=== PATIENT | female | born 1975 | race Caucasian/White ===

== ENCOUNTER 2021-08-06 20:47 | Inpatient (IN) | payer BC ==
[~2021-08-06] VITALS: Ht 185.4 cm; Wt 217.7 kg
[2021-08-06 21:24] LABS: BASOPHILS # (AUTO) 0.1 (0.0-0.1); BASOPHILS % 0.4 % (0.0-1.0); EOSINOPHILS # (AUTO) 0.2 (0.0-0.4); EOSINOPHILS % 1.4 % (0.0-6.0); HEMATOCRIT 42.1 % (34.2-44.1); HEMOGLOBIN 13.3 g/dL (12.0-16.0); LYMPHOCYTES # (AUTO) 2.2 (1.0-3.2); LYMPHOCYTES % 14.4 % (18.0-39.1); MEAN CORPUSCULAR HEMOGLOBIN 28.2 pg (28-32); MEAN CORPUSCULAR HGB CONC 31.6 g/dL (31-35); MEAN CORPUSCULAR VOLUME 89.4 fL (81-99); MONOCYTES # (AUTO) 0.5 (0.2-0.8); MONOCYTES % 3.2 % (4.4-11.3); NEUTROPHILS % 79.1 % (38.7-80.0); PLATELET COUNT 248 x10e3/uL (140-360); RED BLOOD COUNT 4.71 x10e6/uL (3.6-5.1); RED CELL DISTRIBUTION WIDTH 14.5 % (11.7-14.4)
[2021-08-06 21:30] LABS: INR 1.15; PARTIAL THROMBOPLASTIN TIME 25.3 seconds (23.8-35.5); PROTHROMBIN TIME 15.5 seconds (11.9-14.5)
[2021-08-06 21:36] LABS: ANION GAP 18.4 mmol/L (8-16); CALCIUM 9.4 mg/dL (8.4-10.2); CREATININE, SERUM 1.06 mg/dL (0.57-1.11); POTASSIUM 4.4 mmol/L (3.5-5.1)
[2021-08-06] MEDS ORDERED: WARFARIN SODIUM5 MG PO (22:05)
[2021-08-06] MEDS ORDERED: SODIUM CHLORIDE FLUSH 10 ML SYR INJ PRN (22:15)
[2021-08-06] MEDS ORDERED: ONDANSETRON HCL INJ 2MG/ML 2ML 2 MG/ML VIAL IV PRN (22:15)
[2021-08-06] MEDS ORDERED: HEPARIN SOD (PORCINE) 5,000 UNIT/ML VIAL IV ONE (22:15)
[2021-08-06] MEDS ORDERED: HEPARIN 25,000 UNIT DRIP IV ONE (22:48)
[2021-08-06] MEDS: HEPARIN 25,000 UNIT 1,500 UNIT in DEXTROSE 5% 250ML 250 ML IV SCH (23:03)
[2021-08-07] VITALS (10 sets, daily range): BP systolic 92–110; BP diastolic 57–79
[2021-08-07] MEDS ORDERED: FOLIC ACID0.4 MG PO (01:03)
[2021-08-07] MEDS ORDERED: LISINOPRIL-HCT1 EAC2 PO (01:03)
[2021-08-07] MEDS: HEPARIN 25,000 UNIT 1,500 UNIT in DEXTROSE 5% 250ML 250 ML IV SCH ×2 (04:12→16:15)
[2021-08-07 06:15] LABS: BASOPHILS # (AUTO) 0.1 (0.0-0.1); BASOPHILS % 0.5 % (0.0-1.0); EOSINOPHILS # (AUTO) 0.2 (0.0-0.4); EOSINOPHILS % 0.9 % (0.0-6.0); HEMATOCRIT 43.6 % (34.2-44.1); HEMOGLOBIN 13.7 g/dL (12.0-16.0); LYMPHOCYTES # (AUTO) 3.4 (1.0-3.2); LYMPHOCYTES % 17.5 % (18.0-39.1); MEAN CORPUSCULAR HEMOGLOBIN 27.8 pg (28-32); MEAN CORPUSCULAR HGB CONC 31.4 g/dL (31-35); MEAN CORPUSCULAR VOLUME 88.6 fL (81-99); MONOCYTES # (AUTO) 0.7 (0.2-0.8); MONOCYTES % 3.7 % (4.4-11.3); NEUTROPHILS # (AUTO) 14.7 (2.1-6.9); NEUTROPHILS % 75.6 % (38.7-80.0); PLATELET COUNT 262 x10e3/uL (140-360); RED BLOOD COUNT 4.92 x10e6/uL (3.6-5.1); RED CELL DISTRIBUTION WIDTH 14.7 % (11.7-14.4)
[2021-08-07 06:50] LABS: ALBUMIN 3.3 g/dL (3.5-5.0); ALBUMIN/GLOBULIN RATIO 0.7 (0.8-2.0); ANION GAP 17.4 mmol/L (8-16); CALCIUM 9.3 mg/dL (8.4-10.2); CREATININE, SERUM 1.34 mg/dL (0.57-1.11); POTASSIUM 4.4 mmol/L (3.5-5.1)
[2021-08-07] MEDS ORDERED: HEPARIN 25,000 UNIT DRIP IV ONE (07:33)
[2021-08-07] MEDS: ACETAMINOPHEN/CODEINE 300MG - 30MG TAB PO PRN ×3 (08:15→20:34)
[2021-08-07] MEDS ORDERED: Vancomycin IV 1 GM in SODIUM CHLORIDE 0.9% 250ML 250 ML IV SCH (17:00)
[2021-08-07 17:41] LABS: INR 1.11; PROTHROMBIN TIME 15.1 seconds (11.9-14.5)
[2021-08-07] MEDS: WARFARIN SOD 2 MG TAB PO SCH (17:46)
[2021-08-07] MEDS: Vancomycin IV 1 GM in SODIUM CHLORIDE 0.9% 250ML 250 ML IV SCH (20:00)
[2021-08-07] MEDS ORDERED: CEFTRIAXONE 1 GM in SODIUM CHLORIDE 0.9% 50ML 50 ML IV SCH (21:00)
[2021-08-08] VITALS (8 sets, daily range): BP systolic 77–115; BP diastolic 53–71
[2021-08-08] MEDS: ACETAMINOPHEN/CODEINE 300MG - 30MG TAB PO PRN ×3 (01:47→17:43)
[2021-08-08] MEDS: Vancomycin IV 1 GM in SODIUM CHLORIDE 0.9% 250ML 250 ML IV SCH ×2 (10:40→20:31)
[2021-08-08] MEDS: WARFARIN SOD 2 MG TAB PO SCH (17:00)
[2021-08-08 18:21] LABS: CLARITY,URINE CLEAR (CLEAR); COLOR,URINE YELLOW (YELLOW); KETONES,URINE NEGATIVE (NEGATIVE); LEUKOCYTE ESTERASE ,URINE NEGATIVE (NEGATIVE); NITRITE,URINE NEGATIVE (NEGATIVE); PROTEIN,URINE DIPSTICK NEGATIVE (NEGATIVE); URINE UROBILINOGEN 0.2 mg/dL (0.2 - 1)
[2021-08-08 18:22] LABS: BACTERIA,URINE RARE /HPF; EPITHELIAL CELLS,URINE MODERATE /LPF; RBC,URINE 0-5 /HPF (0-5); WBC,URINE (MAN) 0-5 /HPF (0-5)
[2021-08-08] MEDS: HEPARIN 25,000 UNIT 1,500 UNIT in DEXTROSE 5% 250ML 250 ML IV SCH (21:18)
[2021-08-09] VITALS (8 sets, daily range): BP systolic 72–131; BP diastolic 58–86
[2021-08-09] MEDS: ACETAMINOPHEN/CODEINE 300MG - 30MG TAB PO PRN ×4 (01:11→22:00)
[2021-08-09 06:09] LABS: INR 1.13; PROTHROMBIN TIME 15.3 seconds (11.9-14.5)
[2021-08-09] MEDS: Vancomycin IV 1 GM in SODIUM CHLORIDE 0.9% 250ML 250 ML IV SCH (07:55)
[2021-08-09] MEDS: HEPARIN 25,000 UNIT 1,500 UNIT in DEXTROSE 5% 250ML 250 ML IV SCH ×2 (08:00→16:26)
[2021-08-09] MEDS ORDERED: HEPARIN 25,000 UNIT DRIP IV ONE (16:17)
[2021-08-09] MEDS: WARFARIN SOD 2 MG TAB PO SCH ×2 (16:25→20:55)
[2021-08-10 00:44] VITALS: BP 104/57
[2021-08-10 05:08] VITALS: BP 141/77
[2021-08-10 05:55] LABS: BASOPHILS % 0.4 % (0.0-1.0); EOSINOPHILS # (AUTO) 0.1 (0.0-0.4); EOSINOPHILS % 1.1 % (0.0-6.0); HEMATOCRIT 35.5 % (34.2-44.1); HEMOGLOBIN 11.8 g/dL (12.0-16.0); LYMPHOCYTES # (AUTO) 2.4 (1.0-3.2); MEAN CORPUSCULAR HEMOGLOBIN 27.7 pg (28-32); MEAN CORPUSCULAR HGB CONC 33.2 g/dL (31-35); MEAN CORPUSCULAR VOLUME 83.3 fL (81-99); MONOCYTES # (AUTO) 0.7 (0.2-0.8); NEUTROPHILS # (AUTO) 5.7 (2.1-6.9); NEUTROPHILS % 62.4 % (38.7-80.0); PLATELET COUNT 283 x10e3/uL (140-360); RED BLOOD COUNT 4.26 x10e6/uL (3.6-5.1); RED CELL DISTRIBUTION WIDTH 14.4 % (11.7-14.4)
[2021-08-10 07:23] VITALS: BP 121/76
[2021-08-10] MEDS: ACETAMINOPHEN/CODEINE 300MG - 30MG TAB PO PRN ×4 (08:10→21:40)
[2021-08-10] MEDS: HEPARIN 25,000 UNIT 1,500 UNIT in DEXTROSE 5% 250ML 250 ML IV SCH ×2 (08:30→19:33)
[2021-08-10] MEDS: WARFARIN SOD 2 MG TAB PO SCH (19:04)
[2021-08-10 21:07] VITALS: BP 123/61
[2021-08-10 21:10] VITALS: BP 123/61
[2021-08-10 23:50] VITALS: BP 120/71
[2021-08-11] VITALS (8 sets, daily range): BP systolic 18–126; BP diastolic 53–72
[2021-08-11] MEDS: HEPARIN 25,000 UNIT 1,500 UNIT in DEXTROSE 5% 250ML 250 ML IV SCH ×2 (05:30→15:53)
[2021-08-11] MEDS ORDERED: HEPARIN 25,000 UNIT DRIP IV ONE (05:33)
[2021-08-11 06:47] LABS: INR 1.11; PROTHROMBIN TIME 15.1 seconds (11.9-14.5)
[2021-08-11 06:48] LABS: PARTIAL THROMBOPLASTIN TIME 55.1 seconds (23.8-35.5)
[2021-08-11] MEDS: ACETAMINOPHEN/CODEINE 300MG - 30MG TAB PO PRN ×3 (08:00→21:53)
[2021-08-11] MEDS: WARFARIN SOD 2 MG TAB PO SCH (16:36)
[2021-08-12] VITALS (7 sets, daily range): BP systolic 108–133; BP diastolic 55–76
[2021-08-12] MEDS: HEPARIN 25,000 UNIT 1,500 UNIT in DEXTROSE 5% 250ML 250 ML IV SCH ×3 (03:58→21:44)
[2021-08-12] MEDS: ACETAMINOPHEN/CODEINE 300MG - 30MG TAB PO PRN ×3 (05:30→20:28)
[2021-08-12 07:16] LABS: BASOPHILS # (AUTO) 0.1 (0.0-0.1); BASOPHILS % 0.6 % (0.0-1.0); EOSINOPHILS # (AUTO) 0.3 (0.0-0.4); EOSINOPHILS % 2.5 % (0.0-6.0); HEMATOCRIT 42.1 % (34.2-44.1); HEMOGLOBIN 13.1 g/dL (12.0-16.0); LYMPHOCYTES # (AUTO) 2.6 (1.0-3.2); LYMPHOCYTES % 26.4 % (18.0-39.1); MEAN CORPUSCULAR HEMOGLOBIN 27.6 pg (28-32); MEAN CORPUSCULAR HGB CONC 31.1 g/dL (31-35); MEAN CORPUSCULAR VOLUME 88.6 fL (81-99); MONOCYTES # (AUTO) 0.4 (0.2-0.8); MONOCYTES % 3.5 % (4.4-11.3); NEUTROPHILS # (AUTO) 6.4 (2.1-6.9); PLATELET COUNT 223 x10e3/uL (140-360); RED BLOOD COUNT 4.75 x10e6/uL (3.6-5.1); RED CELL DISTRIBUTION WIDTH 14.6 % (11.7-14.4)
[2021-08-12 07:31] LABS: INR 1.16; PROTHROMBIN TIME 15.6 seconds (11.9-14.5)
[2021-08-12 07:32] LABS: PARTIAL THROMBOPLASTIN TIME 60.4 seconds (23.8-35.5)
[2021-08-12 07:56] LABS: ALBUMIN 3.2 g/dL (3.5-5.0); ALBUMIN/GLOBULIN RATIO 0.7 (0.8-2.0); ANION GAP 14.9 mmol/L (8-16); CALCIUM 9.2 mg/dL (8.4-10.2); CREATININE, SERUM 0.78 mg/dL (0.57-1.11); POTASSIUM 4.9 mmol/L (3.5-5.1)
[2021-08-12] MEDS: WARFARIN SOD 3 MG TAB PO SCH (17:05)
[2021-08-13] VITALS (9 sets, daily range): BP systolic 0–133; BP diastolic 41–63
[2021-08-13] MEDS: ACETAMINOPHEN/CODEINE 300MG - 30MG TAB PO PRN ×2 (05:30→13:31)
[2021-08-13 09:20] LABS: INR 1.41; PROTHROMBIN TIME 18.2 seconds (11.9-14.5)
[2021-08-13 09:25] LABS: PARTIAL THROMBOPLASTIN TIME 109.5 seconds (23.8-35.5)
[2021-08-13] MEDS: HEPARIN 25,000 UNIT 1,500 UNIT in DEXTROSE 5% 250ML 250 ML IV SCH (10:01)
[2021-08-13] MEDS: WARFARIN SOD 3 MG TAB PO SCH (16:13)
[2021-08-13] MEDS: DOXEPIN HCL 10 MG CAP PO SCH (20:37)
[2021-08-14] VITALS (8 sets, daily range): BP systolic 77–130; BP diastolic 54–77
[2021-08-14] MEDS: ACETAMINOPHEN/CODEINE 300MG - 30MG TAB PO PRN ×2 (09:55→21:25)
[2021-08-14] MEDS: HEPARIN 25,000 UNIT 1,500 UNIT in DEXTROSE 5% 250ML 250 ML IV SCH (10:00)
[2021-08-14 10:12] LABS: INR 1.52; PROTHROMBIN TIME 19.3 seconds (11.9-14.5)
[2021-08-14 10:14] LABS: PARTIAL THROMBOPLASTIN TIME 74.2 seconds (23.8-35.5)
[2021-08-14] MEDS: WARFARIN SOD 3 MG TAB PO SCH (16:57)
[2021-08-14] MEDS: DOXEPIN HCL 10 MG CAP PO SCH (21:00)
[2021-08-15] VITALS (8 sets, daily range): BP systolic 109–134; BP diastolic 55–88
[2021-08-15] MEDS ORDERED: HEPARIN 25,000 UNIT DRIP IV ONE (06:34)
[2021-08-15] MEDS: HEPARIN 25,000 UNIT 1,500 UNIT in DEXTROSE 5% 250ML 250 ML IV SCH ×2 (06:37→11:15)
[2021-08-15] MEDS: ACETAMINOPHEN/CODEINE 300MG - 30MG TAB PO PRN ×2 (08:47→21:03)
[2021-08-15 10:21] LABS: INR 1.65; PROTHROMBIN TIME 20.6 seconds (11.9-14.5)
[2021-08-15 10:23] LABS: PARTIAL THROMBOPLASTIN TIME 95.1 seconds (23.8-35.5)
[2021-08-15] MEDS: WARFARIN SOD 3 MG TAB PO SCH (16:16)
[2021-08-15] MEDS: TRIAMCINOLONE ACET 0.1% CREAM 15 GM TUBE TOP SCH (16:47)
[2021-08-15] MEDS: DOXEPIN HCL 10 MG CAP PO SCH (21:00)
[2021-08-16] VITALS (7 sets, daily range): BP systolic 103–130; BP diastolic 62–81
[2021-08-16 09:33] LABS: INR 1.85; PROTHROMBIN TIME 22.5 seconds (11.9-14.5)
[2021-08-16 09:37] LABS: PARTIAL THROMBOPLASTIN TIME 116.8 seconds (23.8-35.5)
[2021-08-16] MEDS: TRIAMCINOLONE ACET 0.1% CREAM 15 GM TUBE TOP SCH ×2 (09:45→15:41)
[2021-08-16] MEDS: HEPARIN 25,000 UNIT 1,500 UNIT in DEXTROSE 5% 250ML 250 ML IV SCH (10:12)
[2021-08-16] MEDS: ACETAMINOPHEN/CODEINE 300MG - 30MG TAB PO PRN ×2 (15:16→22:40)
[2021-08-16] MEDS: WARFARIN SOD 3 MG TAB PO SCH (17:21)
[2021-08-16] MEDS: DOXEPIN HCL 10 MG CAP PO SCH (21:00)
[2021-08-17] VITALS (7 sets, daily range): BP systolic 119–128; BP diastolic 52–75
[2021-08-17] MEDS: HEPARIN 25,000 UNIT 1,500 UNIT in DEXTROSE 5% 250ML 250 ML IV SCH (04:56)
[2021-08-17 09:48] LABS: INR 1.96; PROTHROMBIN TIME 23.5 seconds (11.9-14.5)
[2021-08-17] MEDS: ACETAMINOPHEN/CODEINE 300MG - 30MG TAB PO PRN ×2 (10:34→21:48)
[2021-08-17] MEDS: TRIAMCINOLONE ACET 0.1% CREAM 15 GM TUBE TOP SCH ×2 (10:40→18:07)
[2021-08-17] MEDS ORDERED: ONDANSETRON HCL 4 MG ORAL DISINTEGRATING TAB PO PRN (12:45)
[2021-08-17] MEDS: WARFARIN SOD 3 MG TAB PO SCH (16:33)
[2021-08-17 20:52] LABS: BASOPHILS % 0.5 % (0.0-1.0); EOSINOPHILS # (AUTO) 0.1 (0.0-0.4); EOSINOPHILS % 1.5 % (0.0-6.0); HEMATOCRIT 35.3 % (34.2-44.1); HEMOGLOBIN 11.2 g/dL (12.0-16.0); LYMPHOCYTES # (AUTO) 1.9 (1.0-3.2); LYMPHOCYTES % 21.4 % (18.0-39.1); MEAN CORPUSCULAR HEMOGLOBIN 28.6 pg (28-32); MEAN CORPUSCULAR HGB CONC 31.7 g/dL (31-35); MEAN CORPUSCULAR VOLUME 90.3 fL (81-99); MONOCYTES # (AUTO) 0.4 (0.2-0.8); NEUTROPHILS # (AUTO) 5.8 (2.1-6.9); NEUTROPHILS % 67.4 % (38.7-80.0); PLATELET COUNT 304 x10e3/uL (140-360); RED BLOOD COUNT 3.91 x10e6/uL (3.6-5.1); RED CELL DISTRIBUTION WIDTH 15.4 % (11.7-14.4)
[2021-08-17] MEDS: DOXEPIN HCL 10 MG CAP PO SCH (21:00)
[2021-08-17 21:42] LABS: EOSINOPHILS % (MANUAL) 2 % (0-7); LYMPHOCYTES % (MANUAL) 23 % (19-48); MONOCYTES % (MANUAL) 2 % (3.4-9.0); NEUTROPHILS % (MANUAL) 71 % (40-74); PLATELET ESTIMATE ADEQUATE; PLATELET MORPHOLOGY COMMENT NORMAL; RBC MORPHOLOGY COMMENT NORMAL
[2021-08-17] MEDS: CLINDAMYCIN HCL 150 MG CAP PO SCH (21:48)
[2021-08-18] VITALS: BP 114/63
[2021-08-18] MEDS: HEPARIN 25,000 UNIT 1,500 UNIT in DEXTROSE 5% 250ML 250 ML IV SCH (01:28)
[2021-08-18 03:54] VITALS: BP 126/54
[2021-08-18] MEDS: CLINDAMYCIN HCL 150 MG CAP PO SCH (05:35)
[2021-08-18 08:22] VITALS: BP 126/71
[2021-08-18 08:23] VITALS: BP 126/71
[2021-08-18] MEDS: TRIAMCINOLONE ACET 0.1% CREAM 15 GM TUBE TOP SCH (09:19)
[2021-08-18 09:30] LABS: INR 2.34
[2021-08-18] MEDS ORDERED: WARFARIN SODIUM1 MG PO (11:23)
[2021-08-18 11:59] VITALS: BP 124/67
== END 2021-08-18 12:37 | disposition home or self-care (01) | DRG 300 ==
LOC: ER 20:50 → ERHOLD 22:12 → MED/SURG3 23:13
PROVIDERS: ADMIT Internal Medicine; ATTEND Internal Medicine
DX: I82.431 Acute embolism and thrombosis of right popliteal vein (principal); Z68.44 Body mass index [BMI] 60.0-69.9, adult; D68.51 Activated protein C resistance; L03.115 Cellulitis of right lower limb; E87.1 Hypo-osmolality and hyponatremia; L97.929 Non-pressure chronic ulcer of unspecified part of left lower leg with unspecified severity; I82.411 Acute embolism and thrombosis of right femoral vein; I82.491 Acute embolism and thrombosis of other specified deep vein of right lower extremity; E66.01 Morbid (severe) obesity due to excess calories; Z86.718 Personal history of other venous thrombosis and embolism; Z79.01 Long term (current) use of anticoagulants; I87.2 Venous insufficiency (chronic) (peripheral); Z91.19 Patient's noncompliance with other medical treatment and regimen; Z95.828 Presence of other vascular implants and grafts; E88.09 Other disorders of plasma-protein metabolism, not elsewhere classified; D72.823 Leukemoid reaction; T78.49XA Other allergy, initial encounter; Z88.0 Allergy status to penicillin; Z20.822 Contact with and (suspected) exposure to COVID-19; I80.3 Phlebitis and thrombophlebitis of lower extremities, unspecified; R79.1 Abnormal coagulation profile
CPT/HCPCS: 36415; 71046; 80048; 80053; 80202; 81001; 82784; 85025; 85610; 85730; 87040; 87086; 93971; 94799; 99251; 99284; J1644; J2405; J3370; J7050; U0002